=== PATIENT | female | born 1980 | race Caucasian/White ===

== ENCOUNTER 2021-03-03 13:56 | Emergency (ER) | payer MEDICAID, OTHER ==
[~2021-03-03] VITALS: Ht 165.1 cm; Wt 72.7 kg
--- NOTE | 2021-03-03 15:11 | NUR ---
patient received in bed 4.
--- NOTE | 2021-03-03 15:12 | NUR ---
awaiting ed provider.
[2021-03-03] MEDS ORDERED: bacitracin 15gm ointment TP ONE (15:30)
[2021-03-03] MEDS ORDERED: IBUP-1984 PO (15:33)
[2021-03-03 15:57] VITALS: BP 156/99
== END 2021-03-03 15:59 | disposition home or self-care (01) ==
LOC: ER 13:56
DX: M79.661 Pain in right lower leg (principal); Z72.89 Other problems related to lifestyle; Z88.8 Allergy status to other drugs, medicaments and biological substances; Z79.899 Other long term (current) drug therapy
CPT/HCPCS: 73590; 99283